=== PATIENT | male | born 1955 | race Caucasian/White ===

== ENCOUNTER → 2019-02-24 | Day surgery (SDC) | payer MEDICARE, BC ==
[~2019-02-24] MED LIST: Propofol 200 MG/20 ML SDV IV ONE
[2019-02-24] MEDS: Lactated Ringers 1,000 ML IV SCH (09:15)
--- NOTE | 2019-02-24 10:42 | OR ---
DATE OF OPERATION: 02/24/2019 PREOPERATIVE DIAGNOSIS: SCREENING COLONOSCOPY. POSTOPERATIVE DIAGNOSIS: SCREENING COLONOSCOPY. SURGEON: Joel Anthony MD PROCEDURE: FULL-LENGTH COLONOSCOPY. ANESTHESIA: MAC via [employer]. COMPLICATIONS: None. SPECIMEN: None. FINDINGS: 1. Full-length colonoscopy. 2. Mild sigmoid diverticulosis. RECOMMENDATIONS: Followup colonoscopy in 10 years. INDICATIONS: The patient was in for a Welcome to Medicare physical. He is due for a screening colonoscopy. DESCRIPTION OF PROCEDURE: The patient was prepped and draped, placed in the left lateral decubitus position. A lubricated Olympus colonoscope was inserted and easily advanced to the cecum. Direct visualization of the ileocecal valve and appendiceal orifice was accomplished. The bowel prep was fine. Upon withdrawal of the scope, throughout the entire length of the colon, I could find no signs of polyps, mass, ulceration, or bleeding sites. No vascular abnormalities or signs of colitis. The patient had some scattered diverticula in the sigmoid area, very mild in severity. Rectal vault was benign. Retroflexion showed no perianal lesions. Air was suctioned, scope removed without complication. NEEL/ALVARO /[id number]
== END ==
LOC: CC.SDS 08:49
PROVIDERS: ATTEND Family Medicine
DX: Z12.11 Encounter for screening for malignant neoplasm of colon (principal); K57.30 Diverticulosis of large intestine without perforation or abscess without bleeding; I10 Essential (primary) hypertension; M19.90 Unspecified osteoarthritis, unspecified site; N40.0 Benign prostatic hyperplasia without lower urinary tract symptoms; N52.9 Male erectile dysfunction, unspecified; R79.89 Other specified abnormal findings of blood chemistry; Z79.899 Other long term (current) drug therapy
CPT/HCPCS: G0121; J2704; J7120